=== PATIENT | female | born 1970 | race Caucasian/White ===

== ENCOUNTER 2017-02-01 00:17 | Emergency (ER) | payer MEDICAID ==
[~2017-02-01] VITALS: Ht 162.6 cm; Wt 44.0 kg
[2017-02-01 00:23] VITALS: Ht 162.6 cm; Wt 44.0 kg
[2017-02-01] MEDS ORDERED: KETOROLAC 15 MG INJ IM STA (02:14)
--- NOTE | 2017-02-01 02:14 | ERD ---
ER Documentation Chief Complaint Date/Time DATE: 02/01/17 TIME: 02:12 Chief Complaint pelvic pain x 2 days HPI This 46-year-old female presents to emergency department with pelvic pain, back pain with dysuria and urgency and frequency. pt reports that the left side radiating to thigh ROS All systems reviewed and are negative except as per history of present illness. Medications Home Meds No Active Prescriptions or Reported Meds Allergies Allergies: Coded Allergies: No Known Allergy (Unverified , 06/06/14) PMhx/Soc Medical and Surgical Hx: pt denies Medical Hx History of Surgery: Yes () Hx Alcohol Use: No Hx Substance Use: No Hx Tobacco Use: No Smoking Status: Never smoker Physical Exam Vitals Vital Signs Date Time Temp Pulse Resp B/P Pulse Ox O2 Delivery O2 Flow Rate FiO2 02/01/17 00:23 98.3 80 20 130/65 98 Vitals stable, triage notes reviewed Physical Exam Const: Well-nourished well-appearing well-hydrated no acute Head: Eyes: ENT: Normal External Ears, Nose and Mouth. Neck: Resp: Respirations even and unlabored no respiratory distress Cardio: Abd: Soft, non tender, non distended. No Espinoza point tenderness, no CVA tenderness Skin: Back: Ext: Neur: Awake and alert Psych: Normal Mood and Affect Results 24 hrs Laboratory Tests Test 02/01/17 02:50 Bedside Urine pH (LAB) 6.0 Bedside Urine Protein (LAB) Negative Bedside Urine Glucose (UA) Negative Bedside Urine Ketones (LAB) Negative Bedside Urine Blood 2+ Bedside Urine Nitrite (LAB) Negative Bedside Urine Leukocyte Esterase (L Negative Current Medications Medications (Trade) Dose Ordered Sig/Mikel Route PRN Reason Start Time Stop Time Status Last Admin Dose Admin Ketorolac Tromethamine (Toradol) 15 mg ONCE STAT IM 02/01/17 02:14 02/01/17 02:16 DC 02/01/17 03:41 Procedures/MDM This pleasant 46-year-old female presents to emergency department with pelvic pain, back pain, and dysuria. Patient reports urinary urgency and frequency, pain radiating from the left side radiates to her thigh. Denies history of kidney stones. I have little clinical suspicion for pyelonephritis, bowel obstruction, patient emergency room treatment includes Toradol, and urinalysis, urinalysis is negative for nitrates or leukocytosis, positive for microscopic hematuria +2. CAT scan abdomen and pelvis with radiologist's findings no acute abnormality identified within the abdomen and pelvis. Moderate retained stool within the colon. There is no radiopaque renal or ureteral calculi identified there is no hydronephrosis or hydroureter there is no retroperitoneal adenopathy. Patient will be discharged home with treatment of constipation with MiraLAX, increase fluids, follow-up with primary physician for evaluation of microscopic hematuria unknown cause. Patient is stable with no new complaints during ER course, clinically there is no current evidence to suggest meningitis, sepsis, acute abdomen, acute coronary syndromes, pulmonary embolism or any other emergent condition appearing to require further evaluation or hospitalization. I feel the patient is stable for discharge at this time. I have discussed results, examination findings, the treatment plan with the patient and family present prior to discharge. Indications for emergent reevaluation, side effects of medication were also discussed. All questions were answered. Patient verbalizes understanding and agrees with plan of care. Departure Diagnosis: Primary Impression: Constipation Constipation type: unspecified constipation type Qualified Code: K59.00 - Constipation, unspecified constipation type Condition: Good Patient Instructions: Constipation (Adult), Hematuria: Possible Causes Additional Instructions: Thank you for for coming to [facility] for your care today. Please ask your nurse or provider if you have questions about your care today and do not leave until all your questions have been answered. Please use any medications given as directed and follow-up with your doctor (or the doctor you were referred to) in the next 2-3 days. If you do not have a primary care doctor you may follow up at the [facility] [place] (listed below). You may also use motrin and tylenol as needed for fever and/or pain unless instructed otherwise by your provider or nurse. Indications for more urgent follow-up have been discussed, but you may return to the Emergency Department at ANY time for any worrisome or worsening symptoms. If you have abdominal pain, please know that no test or exam you received is perfect and you should follow up within 8 hours for continued pain. If you had any imaging studies today, such as an X-Ray or CT Scan, these studies will be reviewed later by a radiologist. You will be called if there are important findings that were not identified today, so make sure the contact information you provided at registration is correct. If you received any narcotic pain control medicine today, such as Vicodin, Morphine or Dilaudid, your coordination and judgment may be affected for a number of hours. Please do not drive or operate heavy machinery, and you may want someone to assist you at home. If you were given a prescription for narcotic medication, be aware that it is very addictive- use sparingly and only if necessary. LINNEA MATSON Feb 01, 2017 02:10
[2017-02-01 02:44] LABS: URINE BLOOD (Dip) POC 2+ (NEGATIVE)
--- NOTE | 2017-02-01 06:10 | RADRPT ---
PROCEDURE: CT Abdomen and pelvis without contrast. CLINICAL INDICATION: Abdominal pain. TECHNIQUE: CT scan of the abdomen and pelvis was performed on a multi-detector high-resolution CT scanner. Contiguous axial images were obtained from the lung bases to the ischial tuberosities wit hout intravenous contrast. Coronal and sagittal reformatted images were also obtained. Images were reviewed on the PACS workstation. One or more of the following dose reduction techniques were used: - Automated exposure control. - Adjustment of the mA and/or kV according to patient size. - Use of iterative reconstruction technique. Exam CTD/vol = 4.04 mGy. Total exam DLP = 198.57 mGy-cm. COMPARISON: None. FINDINGS: Evaluation of the lung bases demonstrates no pleural or parenchymal disease. Abdomen: The liver is normal in size. There is no focal mass or dilatation of the biliary tree. T he gallbladder is not distended. The spleen, pancreas and bilateral adrenal glands are within keny l limits. Bilateral kidneys are normal in size with no contour deforming mass identified. There is no radiopaque renal or ureteral calculus identified. There is no hydronephrosis or hydroureter. T here is no retroperitoneal adenopathy. The abdominal aorta is of normal caliber. There is moderate retained stool within the colon. There is no bowel obstruction or free air. A no rmal appendix is partially visualized. There are no pericecal inflammatory changes to suggest appen dicitis. There is no diverticulosis or diverticulitis. There is no ascites. Pelvis: The bladder is unremarkable. The uterus and adnexa are within normal limits. There is no significant pelvic adenopathy or free fluid. Evaluation of the osseous structures demonstrates no suspicious lytic or blastic lesion. IMPRESSION: No acute abnormality identified within the abdomen and pelvis. Moderate retained stool within the colon. .Sharad Santiago MD, MD Date Time Electronically viewed and signed by .Sharad Santiago MD, MD on 02/01/2017 06:09 .T/
[2017-02-01] MEDS ORDERED: POLY17PO6 PO (06:18)
== END 2017-02-01 06:43 | disposition home or self-care (01) ==
LOC: FTE 00:17
DX: K59.00 Constipation, unspecified (principal)
CPT/HCPCS: 74176; 81003; 96372; J1885; Z7502